=== PATIENT | female | born 1990 | race Caucasian/White ===

== ENCOUNTER → 2020-01-24 08:41 | Outpatient (CLI) | payer BC, SELFPAY ==
[2020-01-24 11:10] LABS: Progesterone Level 14.83 ng/mL (See Comment)
[2020-01-24 11:14] LABS: Prolactin 43.6 ng/mL
== END ==
PROVIDERS: Visit Provider Obstetrics & Gynecology
DX: N97.0 Female infertility associated with anovulation (principal)
CPT/HCPCS: 36415; 84144; 84146; 84443

== ENCOUNTER → 2020-02-01 18:03 | Outpatient (CLI) | payer BC, SELFPAY ==
--- NOTE | 2020-02-01 18:15 | MRI_ITS ---
STUDY: MRI BRAIN WITH AND WITHOUT CONTRAST REASON FOR EXAM: Female, 29 years old. Infertility,elevated prolactin TECHNIQUE: Standardized multiplanar fat and water weighted pulse sequences were obtained. 11ml Dotarem via IV was administered for the contrast portion of the examination. COMPARISON: None. FINDINGS: Normal size of the ventricles and extra-axial spaces for the patient''s age. Normal white matter tracts of the supratentorial brain. Normal bilateral basal ganglia. Normal thalami. There is no extra-axial fluid accumulation. Normal flow voids within the major intracranial circulation suggesting patency by spin echo criteria. Normal venous enhancement. There is no enhancing intra-axial or extra-axial abnormality. The pituitary appears upper normal size for age measuring possibly 9.3 x 7.7 x 1.5 cm enhancing slightly heterogeneously however there is no focal nonenhancing nodule., There is mild thickening of the proximal fibula. Normal optic chiasm and hypothalamus. Normal tectal plate and pineal gland. Normal midbrain, froilan and medulla. Normal cerebellum. Normal basal cisterns. Normal bilateral temporal bones. Normal bilateral internal auditory canals. No demonstrated orbital abnormality, within the constraints of a routine brain study. There is minor mucosal thickening of the maxillary and sphenoid sinuses. Normal calvarium and skull base. Normal visualized soft tissue structures. Normal visualized upper cervical spine. IMPRESSION: Slightly heterogeneously enhancing pituitary without well-defined nodule. Possibility of a prolactin producing microadenoma not excluded Electronically Signed: Norbert Guzmán MD at 20:03 EDT , Service support , STUDY: MRI BRAIN WITH AND WITHOUT CONTRAST (ATTENTION PITUITARY GLAND) REASON FOR EXAM: Female, 29 years old. Infertility,elevated prolactin TECHNIQUE: Standardized multiplanar fat and water weighted pulse sequences were obtained. 11ml Dotarem via IV was administered for the contrast portion of the examination. COMPARISON: None. FINDINGS: The pituitary is upper normal size for age measuring 9.3 x 7.7 x 1.5 cm but demonstrates heterogeneous enhancement without well-defined focal nonenhancing nodule. There is mild thickening of the proximal pituitary stalk. Normal suprasellar cistern. Normal optic chiasm and hypothalamus. Normal size of the ventricles and extra-axial spaces for the patient''s age. Normal white matter tracts of the supratentorial brain. Normal bilateral basal ganglia. Normal thalami. Normal flow voids within the major intracranial circulation suggesting patency by spin echo criteria. Normal venous enhancement. There is no enhancing intra-axial or extra-axial abnormality. There is no extra-axial fluid accumulation. Normal tectal plate and pineal gland. Normal midbrain, froilan and medulla. Normal cerebellum. Normal basal cisterns. Normal bilateral temporal bones. Normal bilateral internal auditory canals. No demonstrated orbital abnormality, within the constraints of a routine brain study. Normal visualized paranasal sinuses. Normal calvarium and skull base. Normal visualized upper cervical spine. Normal visualized soft tissue structures. MRI/Brain W/WO Contrast IMPRESSION: No well-defined nonenhancing pituitary adenoma however microadenoma cannot be excluded. Clinical correlation recommended Electronically Signed: Norbert Guzmán MD at 20:05 EDT , Service support ,
== END ==
PROVIDERS: Referring Provider Obstetrics & Gynecology; Visit Provider Obstetrics & Gynecology
DX: N97.0 Female infertility associated with anovulation (principal); E22.1 Hyperprolactinemia
CPT/HCPCS: 70553; A9575

== ENCOUNTER → 2020-06-09 09:38 | Outpatient (CLI) | payer BC, SELFPAY ==
[2020-06-09 11:08] LABS: Progesterone Level 18.85 ng/mL (See Comment)
[2020-06-09 11:12] LABS: Prolactin 0.6 ng/mL; Thyroid Stim Hormone (TSH) 1.12 uIU/mL (0.358-3.74)
== END ==
PROVIDERS: Visit Provider Obstetrics & Gynecology
DX: E22.1 Hyperprolactinemia (principal); N97.0 Female infertility associated with anovulation
CPT/HCPCS: 36415; 84144; 84146; 84443

== ENCOUNTER → 2020-06-21 12:33 | Outpatient (CLI) | payer BC, SELFPAY ==
--- NOTE | 2020-06-21 13:00 | RAD_ITS ---
STUDY: HYSTEROSALPINGOGRAM. REASON FOR EXAM: Female, 29 years old. INFERTILLITY FLUOROSCOPY TIME (if supplied): ( 7 seconds ) minutes/seconds. 3 images were obtained. TECHNIQUE: A hysterosalpingogram was performed by the executive communications manager. Imaging was obtained. COMPARISON: None. FINDINGS: The uterus is unremarkable. Both fallopian tubes are patent with spill. RAD/Salpingogram IMPRESSION: Normal hysterosalpingogram. Electronically Signed: Luis Coles, at 13:45 EST , Service support ,
== END ==
PROVIDERS: Referring Provider Obstetrics & Gynecology; Visit Provider Obstetrics & Gynecology
DX: N97.9 Female infertility, unspecified (principal)
CPT/HCPCS: 58340; 74740; Q9967

== ENCOUNTER → 2020-08-03 09:15 | Outpatient (CLI) | payer BC, SELFPAY ==
[2020-08-03 12:15] LABS: Progesterone Level 11.25 ng/mL (See Comment)
== END ==
DX: N97.9 Female infertility, unspecified (principal)
CPT/HCPCS: 36415; 84144

== ENCOUNTER → 2021-03-08 15:01 | Outpatient (CLI) | payer BC, SELFPAY ==
[2021-03-13 10:31] LABS: HPV Reflexed? NOT INDICATED
== END ==
PROVIDERS: Visit Provider Obstetrics & Gynecology
DX: Z12.4 Encounter for screening for malignant neoplasm of cervix (principal)
CPT/HCPCS: 88175; G0145

== ENCOUNTER → 2022-03-07 | Outpatient (CLI) | payer BC, SELFPAY ==
[2022-03-07 13:50] LABS: Amphetamine Urine VISTA NEGATIVE (<1000 ng/mL); Barbiturate Urine VISTA NEGATIVE (< 200 ng/mL); Benzodiazepine Urine VISTA NEGATIVE (< 200 ng/mL); Cocaine Urine VISTA NEGATIVE (< 300 ng/mL); Ecstacy Urine VISTA NEGATIVE (< 500 ng/mL); Methadone Urine VISTA NEGATIVE (< 300 ng/mL); PCP Urine VISTA NEGATIVE (< 25 ng/mL); THC Urine VISTA NEGATIVE (< 50 ng/mL); Vista UDS pH Range 6
[2022-03-11 22:06] LABS: Chlamydia By Nucleic Acid AMP Negative (Negative)
[2022-03-12 11:13] LABS: Gonococcus By Nucleic Acid AMP Negative (Negative)
== END | disposition home or self-care (01) ==
LOC: LABSPEC 13:15
PROVIDERS: Referring Provider Obstetrics & Gynecology; Visit Provider Obstetrics & Gynecology
DX: O09.91 Supervision of high risk pregnancy, unspecified, first trimester (principal)
CPT/HCPCS: 80307; 87086; 87088; 87491; 87591

== ENCOUNTER → 2022-05-03 | Outpatient (CLI) | payer BC, SELFPAY ==
[2022-05-03 09:31] LABS: Absolute Lymphocyte Count 1.66 X10^3/uL (0.83-4.51); Absolute Neutrophil Count 8.5 X10^3/uL (2.0-7.7); Basophil# 0.03 X10^3/uL; Basophil% 0.3 % (0-1); Eosinophil# 0.06 X10^3/uL; Eosinophils% 0.6 % (0-5); Hematocrit 38.1 % (37-47); Hemoglobin 13.3 g/dL (12.0-15.0); Lymphocyte # 1.66 X10^3/ul (0.83-4.51); Lymphocyte % 15.4 % (19-41); Mean Corp Hgb Conc 34.9 g/dL (32-36); Mean Corpuscular Hgb 30.3 pg (27.0-32.0); Mean Corpuscular Volume 86.8 fL (81-99); Mean Platelet Vol. 9.7 fl (6.2-12.0); Monocyte# 0.46 X10^3/uL; Monocyte% 4.3 % (0-10); NRBC Flagged by Analyzer 0 % (0-5); Neutrophil # 8.45 X10^3/uL (2.7-7.7); Neutrophil % 78.6 % (47-70); Platelet Count 186 K/mm3 (150-450); RBC Distribution Width CV 13.6 % (11.6-14.6); RBC Distribution Width SD 42.7 fl (35.1-43.9); Red Blood Count 4.39 M/mm3 (4.2-5.4); White Blood Count 10.8 K/mm3 (4.4-11.0)
[2022-05-03 10:57] LABS: HIV - WCH Non-Reactive (Nonreactive); Hepatitis B Surface Antigen Non-Reactive (Nonreactive); Hepatitis C Antibody Non-Reactive (Nonreactive); Rubella IgG Reactive (Nonreactive); Syphilis Antibodies Non-reactive
== END | disposition home or self-care (01) ==
LOC: PAVLAB 09:20
PROVIDERS: Referring Provider Obstetrics & Gynecology; Visit Provider Obstetrics & Gynecology
DX: O09.91 Supervision of high risk pregnancy, unspecified, first trimester (principal); Z3A.00 Weeks of gestation of pregnancy not specified
CPT/HCPCS: 36415; 85025; 86703; 86762; 86780; 86803; 86850; 86900; 86901; 87340

== ENCOUNTER → 2022-06-28 | Outpatient (CLI) | payer BC, SELFPAY ==
[2022-06-28 08:37] LABS: Absolute Lymphocyte Count 1.41 X10^3/uL (0.83-4.51); Absolute Neutrophil Count 7.8 X10^3/uL (2.0-7.7); Basophil# 0.04 X10^3/uL; Basophil% 0.4 % (0-1); Eosinophil# 0.04 X10^3/uL; Eosinophils% 0.4 % (0-5); Hematocrit 35.1 % (37-47); Hemoglobin 11.8 g/dL (12.0-15.0); Lymphocyte # 1.41 X10^3/ul (0.83-4.51); Lymphocyte % 14.2 % (19-41); Mean Corp Hgb Conc 33.6 g/dL (32-36); Mean Corpuscular Hgb 31.2 pg (27.0-32.0); Mean Corpuscular Volume 92.9 fL (81-99); Mean Platelet Vol. 9.5 fl (6.2-12.0); Monocyte# 0.47 X10^3/uL; Monocyte% 4.7 % (0-10); NRBC Flagged by Analyzer 0 % (0-5); Neutrophil # 7.79 X10^3/uL (2.7-7.7); Neutrophil % 78.4 % (47-70); Platelet Count 179 K/mm3 (150-450); RBC Distribution Width CV 14.1 % (11.6-14.6); RBC Distribution Width SD 48.1 fl (35.1-43.9); Red Blood Count 3.78 M/mm3 (4.2-5.4); White Blood Count 9.9 K/mm3 (4.4-11.0)
[2022-06-28 08:57] LABS: Glucose Challenge Gest 1H 50g 84 mg/dL (70-140)
[2022-06-28 09:30] LABS: HIV - WCH Non-Reactive (Nonreactive); Syphilis Antibodies Non-reactive
== END | disposition home or self-care (01) ==
LOC: PAVLAB 08:24
PROVIDERS: Referring Provider Obstetrics & Gynecology; Visit Provider Obstetrics & Gynecology
DX: Z34.90 Encounter for supervision of normal pregnancy, unspecified, unspecified trimester (principal); Z3A.22 22 weeks gestation of pregnancy
CPT/HCPCS: 36415; 82950; 85025; 86703; 86780

== ENCOUNTER → 2022-08-09 | Outpatient (CLI) | payer BC, SELFPAY ==
[2022-08-09 10:17] LABS: ALB/GLOB Ratio 0.7 RATIO (0.9-2.4); AST(SGOT) 20 U/L (15-37); Alanine Aminotransfer ALT/SGPT 36 U/L (13-56); Albumin, Serum 2.6 g/dL (3.2-5.0); Alkaline Phosphatase 92 U/L (45-117); Anion Gap 7 (5-15); BUN 8 mg/dL (7-18); BUN/Creat Ratio 12.8 RATIO (10-20); Calcium,Total 8.6 mg/dL (8.5-10.1); Chloride 110 mmol/L (98-107); Creatinine, Serum 0.63 mg/dL (0.55-1.02); EST Glomerular Filtration Rate 119 mL/min (>60); Est Glom Filt Rate - Afr Amer 144 mL/min (>60); Globulin 3.8 g/dL (2.2-4.2); Glucose 94 mg/dL (74-106); Potassium 3.5 mmol/L (3.5-5.1); Protein, Total 6.4 g/dL (6.4-8.2); Sodium Level 140 mmol/L (136-145)
== END | disposition home or self-care (01) ==
LOC: PAVLAB 09:10
PROVIDERS: Referring Provider Obstetrics & Gynecology; Visit Provider Obstetrics & Gynecology
DX: R10.11 Right upper quadrant pain (principal)
CPT/HCPCS: 36415; 80053

== ENCOUNTER → 2022-09-06 | Outpatient (CLI) | payer BC, SELFPAY | END | disposition home or self-care (01) | LOC: LABSPEC 16:38 | PROVIDERS: Referring Provider Obstetrics & Gynecology; Visit Provider Obstetrics & Gynecology | DX: O09.91 Supervision of high risk pregnancy, unspecified, first trimester (principal); Z3A.00 Weeks of gestation of pregnancy not specified | CPT/HCPCS: 87077; 87081 ==

== ENCOUNTER → 2022-09-13 | Outpatient (CLI) | payer BC, SELFPAY | END | disposition home or self-care (01) | LOC: LABSPEC 14:03 | PROVIDERS: Referring Provider Obstetrics & Gynecology; Visit Provider Obstetrics & Gynecology | DX: O09.91 Supervision of high risk pregnancy, unspecified, first trimester (principal); Z3A.00 Weeks of gestation of pregnancy not specified | CPT/HCPCS: 87081 ==

== ENCOUNTER 2022-09-26 18:55 | Outpatient (CLI) | payer BC, SELFPAY ==
[2022-09-26 19:55] VITALS: BP 123/84; PULSE 110; TEMP 36.9; O2SAT 98; BMI 27.9
--- NOTE | 2022-09-26 20:54 | HP.PCM.OB_ITS ---
HPI - General General Date of Admission: 09/26/22 HPI Narrative MARYCARMEN HER, is a 32 @ 39 weeks who presents initially for IOL, however due to nursing staff deficit she was asked to be bumped back to tomorrow night. An NST was ordered before sending her home Maternal Data Information SARAH Calculator Estimated Delivery Date Method Current WG Current Estimate 10/03/22 Manual 39w 0d IVF pregnan cy Other Estimates 09/29/22 Ultrasound #1 39w 4d 10/06/22 Conception 38w 4d PFSH PFSH Medical History Low-lying placenta in second trimester Home Medications docosahexaenoic acid 200 mg capsule ( DHA) 200 mg PO DAILY 03/07/22 [History Last Taken Unknown] prochlorperazine maleate 10 mg tablet (Compazine) 10 mg PO Q8H PRN nausea and vomiting #60 tabs 05/03/22 [Rx Last Taken Unknown] hydroxyzine pamoate 50 mg capsule (Vistaril) 50 mg PO QHS sleep 09/26/22 [History Last Taken Unknown] Allergy/AdvReac Type Severity Reaction Status Date / Time No Known Allergies Allergy Verified 09/20/22 08:42 Family History Grandfather Diabetes Grandmother Alzheimer disease Surgical History S/P left knee surgery S/P wisdom tooth extraction Social History Smoking Status: Never smoker alcohol intake: current details: not while substance use type: does not use caffeine: Yes frequency: 5-6 times per week additional social history: - Pedro Luis History 1 Elective abortions Hx Para Spontaneous abortions Hx # Term Pregnancies Ectopic pregnancies Hx # Pregnancies Multiple births # of living children Visit Details Expected Delivery Route/Plan Labor Preferences- CB/BF classes: [] labor support person: [] labor intervention preferences: [] pain management options preferred: [] cut cord/dad catch: [] : [] PP control planned: [] discussed possible routes of delivery and associated risks: [] special requests: [] Plans Covid status: [] Flu vaccine: obtaining 04/03 Tdap vaccine: [] Rhogam: [] LARC form signed: [] Problem list reviewed and updated with the most current plan of care details and appropriate orders placed. Relevant counseling for the gestational age provided. Continue routine care and follow up unless otherwise noted in visit notes/problem list details OB Flowsheet Initial Weight: Not Recorded Date -?-?-?-?-?-?-?-?-?-?-?-?- EGA Weight BP Urine Prot -?-?-?-?-?-?-?-?-?-?-?-?- Glucose FHR FuHt Pres Dilation -?-?-?-?-?-?-?-?-?-?-?-?- Effaced St Visit Note 03/07/22 -?-?-?-?-?-?-?-?-?-?-?-?- 10w 0d 126 lb 108/64 -?-?-?-?-?-?-?-?-?-?-?-?- 178 -?-?-?-?-?-?-?-?-?-?-?-?- JV- IVF transfer with Dr. Lazar. CRL consistent with transfer date. waiting on records 03/18/22 -?-?-?-?-?-?-?-?-?-?-?-?- 11w 4d 127 lb 4 oz 101/64 Nega tive -?-?-?-?-?-?-?-?-?-?-?-?- Negative 165 -?-?-?-?-?-?-?-?-?-?-?-?- SM- no vb crampi ng 04/03/22 -?-?-?-?-?-?-?-?-?-?-?-?- 13w 6d 132 lb 120/64 -?-?-?-?-?-?-?-?-?-?-?-?- 153 -?-?-?-?-?-?-?-?-?-?-?-?- LC- no vb/crampi ng. discussed afp. will obtain NOB labs, hasnt done so yet.has anatomy scheduled with [facility]. 05/03/22 -?-?-?-?-?-?-?-?-?-?-?-?- 18w 1d 137 lb 6 oz 120/71 Nega tive -?-?-?-?-?-?-?-?-?-?-?-?- Negative 145 -?-?-?-?-?-?-?-?-?-?-?-?- JV- no lof, vagi nal bleeding, or cramping. still nauseated, did not vomit today. using compazine. vistaril sent to pharmacy. needs new ob labs still and going today. 05/31/22 -?-?-?-?-?-?-?-?-?-?-?-?- 22w 1d 144 lb 112/75 Negative -?-?-?-?-?-?-?-?-?-?-?-?- Negative 140 -?-?-?-?-?-?-?-?-?-?-?-?- SM- no vb lof go od fm no reuglar ctx doing well 06/28/22 -?-?-?-?-?-?-?-?-?-?-?-?- 26w 1d 150 lb 8 oz 98/65 Nega tive -?-?-?-?-?-?-?-?-?-?-?-?- Negative 140 26 -?-?-?-?-?-?-?-?-?-?-?-?- SM- no vb lof go od fm no regular ctx 07/12/22 -?-?-?-?-?-?-?-?-?-?-?-?- 28w 1d 152 lb 8 oz Negative -?-?-?-?-?-?-?-?-?-?-?-?- Negative 156 27 -?-?-?-?-?-?-?-?-?-?-?-?- JV- no lof, vagi nal or dec fm. got tdap 07/26/22 -?-?-?-?-?-?-?-?-?-?-?-?- 30w 1d 156 lb 116/75 Negative -?-?-?-?-?-?-?-?-?-?-?-?- Negative 140 29 -?-?-?-?-?-?-?-?-?-?-?-?- JV- indigestion but no other complaints. taking pepcid. no lof, vaginal bleeding, or dec fm. 08/09/22 -?-?-?-?-?-?-?-?-?-?-?-?- 32w 1d 159 lb 2 oz 111/71 Nega tive -?-?-?-?-?-?-?-?-?-?-?-?- Negative 145 31 -?-?-?-?-?-?-?-?-?-?-?-?- JV- c/o mid back pain that is sharp at times and chiropractor not helping. she will keep a journal of her diet and let us if it is worse with fatty foods. will get LFTs. mild manipulation attempted today 08/23/22 -?-?-?-?-?-?-?-?-?-?-?-?- 34w 1d 162 lb 8 oz 125/74 -?-?-?-?-?-?-?-?-?-?-?-?- 132 34 -?-?-?-?-?-?-?-?-?-?-?-?- JV- no lof, vagi nal bleeding, or dec fm. referral to Dr. cole made for upper back pain. growth scan normal. plan del 39 weeks for IVF 09/06/22 -?-?-?-?-?-?-?-?-?-?-?-?- 36w 1d 161 lb 6 oz 113/72 Nega tive -?-?-?-?-?-?-?-?-?-?-?-?- Negative 140 0 -?-?-?-?-?-?-?-?-?-?-?-?- 0 -3 LC- no lof /vb. cramping today. enc PO hydration. gbs obtained today 09/13/22 -?-?-?-?-?-?-?-?-?-?-?-?- 37w 1d 163 lb 6 oz 129/82 Nega tive -?-?-?--?-?-?-?-?-?-?-?-?- Negative 147 36 0 -?-?-?-?-?-?-?-?-?-?-?-?- -3 JV- IOL set for 39 weeks (09/26/22 at 7 pm) has group c strep - see problem list. gbs recollected today also. no complaints. labor precautions discussed. needs to sign consent for IOL next visit 09/20/22 -?-?-?-?-?-?-?-?-?-?-?-?- 38w 1d 163 lb 6 oz 136/87 Nega tive -?-?-?-?-?-?-?-?-?-?-?-?- Negative 160 38 0 -?-?-?-?-?-?-?-?-?-?-?-?- -3 JV- no l of, vaginal bleeding, or dec fm. no complaints today. IOL papers signed. NST FHR Rate Baby A Baseline: 140 Variability:: Moderate Accelerations:: 15 x 15 Decelerations:: None NST Reactive:: Yes FHR Category:: Category I ROS Constitutional Constitutional: Reports systems reviewed and no addt'l complaints, except as documented Gastrointestinal Gastrointestinal: Denies bloating, constipation, cramping, diarrhea, nausea or vomiting Genitourinary Genitourinary: Reports other Details: Denies vaginal odor, vaginal bleeding, or vaginal discharge ; Denies difficulty urinating or flank pain Vital Signs Vital Signs Vital Signs: 09/26/22 19:55 09/26/22 19:55 09/26/22 19:55 Temperature Temperature Source Temporal Pulse Rate 110 H Blood Pressure 123/84 H BP Systolic 123 BP Diastolic 84 Pulse Ox 09/26/22 19:55 09/26/22 19:55 Temperature 98.4 F Temperature Source Pulse Rate Blood Pressure BP Systolic BP Diastolic Pulse Ox 98 Weight Weight: 168 lb Body Mass Index (BMI) 27.9 Physical Exam HEENT normocephalic Resp normal respiratory effort and normal air movement no CVA tenderness Extremity normal to inspection General Extremity: edema bilateral (trace ) Labs Labs Labs: Blood Type A POSITIVE Antibody Screen NEGATIVE Hct 35.1 % (37-47) L Hgb 11.8 g/dL (12.0-15.0) L Pap Smear Negative Syphilis Total Ab Non-reactive Rubella IgG Antibody Reactive (Nonreactive) Hep Bs Antigen Non-Reactive (Nonreactive) Chlamydia DNA (PABLO) Negative (Negative) Neisseria gonorrhoeae DNA (PABLO) Negative (Negative) HIV 1&2 Antibody Non-Reactive (Nonreactive) Glucose 1 Hr 50 gm 84 mg/dL (70-140) Assessment & Plan (1) conceived through in vitro fertilization: COMMENT: nl echo. weekly nsts at 36 deliver by 39-40. (2) : QUALIFIERS: Weeks of gestation: 38 weeks Qualified Code(s): Z3A.38 - 38 weeks gestation of COMMENT: GBS neg, nipt low risk. carrier done nonsignificant. anatomy reviewed (3) Supervision of high risk in first trimester: COMMENT: PRR SARAH 10/03/22 surprise Spouse: Pedro Luis PLAN: Plan dc to home tonight and return tomorrow night for IOL Charges/Coding Multi Select Codes Urinary/Genital Urinary/Genital CPT Codes: 12397-04 non-stress test Interp
== END 2022-09-26 20:40 | disposition home or self-care (01) ==
LOC: WPOUT 09-27 11:20 → WP 09-27 11:21
PROVIDERS: Visit Provider Obstetrics & Gynecology
DX: O09.813 Supervision of pregnancy resulting from assisted reproductive technology, third trimester (principal); Z3A.38 38 weeks gestation of pregnancy
CPT/HCPCS: 59025; 59050

== ENCOUNTER 2022-09-27 19:23 | Inpatient (IN) | payer BC, SELFPAY ==
[2022-09-27 19:21] VITALS: BMI 27.8
[2022-09-27 19:39] VITALS: BP 129/82; PULSE 82; O2SAT 98
[2022-09-27 19:40] VITALS: TEMP 37.4
[2022-09-27] MEDS: Lactated Ringers 1,000 ML 50 ML IV (19:55)
[2022-09-27 20:16] LABS: Absolute Lymphocyte Count 2.42 X10^3/uL (0.83-4.51); Absolute Neutrophil Count 8.2 X10^3/uL (2.0-7.7); Basophil# 0.07 X10^3/uL; Basophil% 0.6 % (0-1); Eosinophil# 0.05 X10^3/uL; Eosinophils% 0.4 % (0-5); Hematocrit 35.6 % (37-47); Hemoglobin 12.1 g/dL (12.0-15.0); Lymphocyte # 2.42 X10^3/ul (0.83-4.51); Lymphocyte % 19.9 % (19-41); Mean Corpuscular Hgb 29.9 pg (27.0-32.0); Mean Corpuscular Volume 87.9 fL (81-99); Mean Platelet Vol. 10.8 fl (6.2-12.0); Monocyte# 1.13 X10^3/uL; Monocyte% 9.3 % (0-10); NRBC Flagged by Analyzer 0 % (0-5); Neutrophil # 8.24 X10^3/uL (2.7-7.7); Neutrophil % 67.9 % (47-70); Platelet Count 211 K/mm3 (150-450); RBC Distribution Width CV 13.5 % (11.6-14.6); RBC Distribution Width SD 43.3 fl (35.1-43.9); Red Blood Count 4.05 M/mm3 (4.2-5.4); White Blood Count 12.1 K/mm3 (4.4-11.0)
[2022-09-27 20:50] LABS: Syphilis Antibodies Non-reactive
--- NOTE | 2022-09-27 21:05 | HP.PCM.OB_ITS ---
HPI - General General Date of Admission: 09/27/22 Date of Service: 09/27/22 HPI Narrative MARYCARMEN HER, is a 32 F who presents at 39 weeks for elective IOL for IVF . Maternal Data Information SARAH Calculator Estimated Delivery Date Method Current WG Current Estimate 10/03/22 Manual 39w 1d IVF pregnan cy Other Estimates 09/29/22 Ultrasound #1 39w 5d 10/06/22 Conception 38w 5d Final SARAH: 10/03/22 Final SARAH Source: US >20 weeks Gestational age: 39 weeks 1 day PFSH PFSH Medical History (Updated 09/27/22 @ 19:48 by Mirta Coley) Infertility Low-lying placenta in second trimester Home Medications docosahexaenoic acid 200 mg capsule ( DHA) 200 mg PO DAILY 03/07/22 [History Last Taken 09/27/22 08:00 1 tab] prochlorperazine maleate 10 mg tablet (Compazine) 10 mg PO Q8H PRN nausea and vomiting #60 tabs 05/03/22 [Rx Last Taken Unknown] hydroxyzine pamoate 50 mg capsule (Vistaril) 50 mg PO QHS sleep 09/26/22 [History Last Taken Unknown] Allergy/AdvReac Type Severity Reaction Status Date / Time No Known Allergies Allergy Verified 09/20/22 08:42 Family History Grandfather Diabetes Grandmother Alzheimer disease Surgical History (Updated 09/27/22 @ 19:49 by Mirta Coley) History of surgery S/P left knee surgery S/P wisdom tooth extraction Social History Smoking Status: Never smoker alcohol intake: current details: not while substance use type: does not use caffeine: Yes frequency: 5-6 times per week additional social history: - Pedro Luis History 1 Elective abortions Hx Para 0 Spontaneous abortions Hx # Term Pregnancies Ectopic pregnancies Hx # Pregnancies Multiple births # of living children Visit Details Expected Delivery Route/Plan Labor Preferences- CB/BF classes: [] labor support person: [] labor intervention preferences: [] pain management options preferred: [] cut cord/dad catch: [] : [] PP control planned: [] discussed possible routes of delivery and associated risks: [] special requests: [] Plans Covid status: [] Flu vaccine: obtaining 04/03 Tdap vaccine: [] Rhogam: [] LARC form signed: [] Problem list reviewed and updated with the most current plan of care details and appropriate orders placed. Relevant counseling for the gestational age provided. Continue routine care and follow up unless otherwise noted in visit notes/problem list details OB Flowsheet Initial Weight: Not Recorded Date -?-?-?-?-?-?-?-?-?-?-?-?- EGA Weight BP Urine Prot -?-?-?-?-?-?-?-?-?-?-?-?- Glucose FHR FuHt Pres Dilation -?-?-?-?-?-?-?-?-?-?-?-?- Effaced St Visit Note 03/07/22 -?-?-?-?--?-?-?-?-?-?-?-?- 10w 0d 126 lb 108/64 -?-?-?-?-?-?-?-?-?-?-?-?- 178 -?-?-?-?-?-?-?-?-?-?-?-?- JV- IVF transfer with Dr. Lazar. CRL consistent with transfer date. waiting on records 03/18/22 -?-?-?-?-?-?-?-?-?-?-?-?- 11w 4d 127 lb 4 oz 101/64 Nega tive -?-?-?-?-?-?-?-?-?-?-?-?- Negative 165 -?-?-?-?-?-?-?-?-?-?-?-?- SM- no vb crampi ng 04/03/22 -?-?-?-?-?-?-?-?-?-?-?-?- 13w 6d 132 lb 120/64 -?-?-?-?-?-?-?-?-?-?-?-?- 153 -?-?-?-?-?-?-?-?-?-?-?-?- LC- no vb/crampi ng. discussed afp. will obtain NOB labs, hasnt done so yet.has anatomy scheduled with [facility]. 05/03/22 -?-?-?-?-?-?-?--?-?-?-?-?- 18w 1d 137 lb 6 oz 120/71 Nega tive -?-?-?-?-?-?-?-?-?-?-?-?- Negative 145 -?-?-?-?-?-?-?-?-?-?-?-?- JV- no lof, vagi nal bleeding, or cramping. still nauseated, did not vomit today. using compazine. vistaril sent to pharmacy. needs new ob labs still and going today. 05/31/22 -?-?-?-?-?-?-?-?-?-?-?-?- 22w 1d 144 lb 112/75 Negative -?-?-?-?-?-?-?-?-?-?-?-?- Negative 140 -?-?-?-?-?-?-?-?-?-?-?-?- SM- no vb lof go od fm no reuglar ctx doing well 06/28/22 -?-?-?-?-?-?-?-?-?-?-?-?- 26w 1d 150 lb 8 oz 98/65 Nega tive -?-?-?-?-?-?-?-?-?-?-?-?- Negative 140 26 -?-?-?-?-?-?-?-?-?-?-?-?- SM- no vb lof go od fm no regular ctx 07/12/22 -?-?-?-?-?-?-?-?-?-?-?-?- 28w 1d 152 lb 8 oz Negative -?-?-?-?-?-?-?-?-?-?-?-?- Negative 156 27 -?-?-?-?-?-?-?-?-?-?-?-?- JV- no lof, vagi nal or dec fm. got tdap 07/26/22 -?-?-?-?-?-?-?-?-?-?-?-?- 30w 1d 156 lb 116/75 Negative -?-?-?-?--?-?-?-?-?-?-?-?- Negative 140 29 -?-?-?-?-?-?-?-?-?-?-?-?- JV- indigestion but no other complaints. taking pepcid. no lof, vaginal bleeding, or dec fm. 08/09/22 -?-?-?-?-?-?-?-?-?-?-?-?- 32w 1d 159 lb 2 oz 111/71 Nega tive -?-?-?-?-?-?-?-?-?-?-?-?- Negative 145 31 -?-?-?-?-?-?-?-?-?-?-?-?- JV- c/o mid back pain that is sharp at times and chiropractor not helping. she will keep a journal of her diet and let us if it is worse with fatty foods. will get LFTs. mild manipulation attempted today 08/23/22 -?-?-?-?-?-?-?-?-?-?-?-?- 34w 1d 162 lb 8 oz 125/74 -?-?-?-?-?-?-?-?-?-?-?-?- 132 34 -?-?-?-?-?-?-?-?-?-?-?-?- JV- no lof, vagi nal bleeding, or dec fm. referral to Dr. cole made for upper back pain. growth scan normal. plan del 39 weeks for IVF 09/06/22 -?-?-?-?-?-?-?-?-?-?-?-?- 36w 1d 161 lb 6 oz 113/72 Nega tive -?-?-?-?-?-?-?-?-?-?-?-?- Negative 140 0 -?-?-?-?-?-?-?-?-?-?-?-?- 0 -3 LC- no lof /vb. cramping today. enc PO hydration. gbs obtained today 09/13/22 -?-?-?-?-?-?-?-?-?-?-?-?- 37w 1d 163 lb 6 oz 129/82 Nega tive -?-?-?-?-?-?-?-?-?-?-?-?- Negative 147 36 0 -?-?-?-?-?-?-?-?-?-?-?-?- -3 JV- IOL set for 39 weeks (09/26/22 at 7 pm) has group c strep - see problem list. gbs recollected today also. no complaints. labor precautions discussed. n eeds to sign consent for IOL next visit 09/20/22 -?-?-?-?-?-?-?-?-?-?-?-?- 38w 1d 163 lb 6 oz 136/87 Nega tive -?-?-?-?-?-?-?-?-?-?-?-?- Negative 160 38 0 -?-?-?-?-?-?-?-?-?-?-?-?- -3 JV- no l of, vaginal bleeding, or dec fm. no complaints today. IOL papers signed. 09/27/22 -?-?-?-?-?-?-?-?-?-?-?-?- 39w 1d 167 lb 8.821 oz 129/82 -?-?-?-?-?-?-?-?-?-?-?-?- -?-?-?-?-?-?-?-?-?-?-?-?- NST FHR Rate Baby A Baseline: 130 Variability:: Moderate Accelerations:: 15 x 15 Decelerations:: None NST Reactive:: Yes FHR Category:: Category I Uterine Activity:: none ROS Constitutional Constitutional: Denies change in weight, fatigue, fever(s), headache(s), poor appetite or weakness Eyes Eyes: Denies blurry vision, change in vision, floaters, seeing flashes or spots in vision ENT HEENT: Denies dizziness, headache(s), loss taste/smell or sore throat Cardiovascular Cardiovascular: Denies chest pain, dizziness, dyspnea, irregular heart rhythm, lightheadedness, palpitations or rapid heart rate Respiratory/Chest Respiratory/Chest: Denies change in mental status, chest tightness, cough, dyspnea or breast pain Gastrointestinal Gastrointestinal: Denies anorexia, chewing difficulty, constipation, diarrhea or weight changes Genitourinary Genitourinary: Denies difficulty urinating, dysuria, flank pain, genital pain, urinary frequency or urinary urgency Musculoskeletal Musculoskeletal: Denies back pain, difficulty walking, extremity pain, joint pain, muscle cramps or muscle weakness Integumentary Integumentary: Denies lesions or unusual bruising Neurologic Neurologic: Denies abnormal movements, abnormal speech, dizziness, numbness, seizure-like activity, syncope or weakness Psychiatric Psychiatric: Denies behavioral changes, change in appetite, confusion, depression, homicidal ideation, suicidal ideation or suicidal thoughts Endocrine Endocrinology: Denies excessive sweating, polydipsia or polyuria Hematologic/Lymphatic Hematologic/Lymphatic: Denies anemia Allergic/Immunologic Allergic/Immunologic: Denies itchy eyes, lip swelling, throat swelling, tongue swelling or wheezing Vital Signs Vital Signs Vital Signs: 09/27/22 19:39 09/27/22 19:39 09/27/22 19:39 Temperature Pulse Rate 82 Blood Pressure 129/82 H BP Systolic 129 BP Diastolic 82 Pulse Ox 98 09/27/22 19:40 Temperature 99.3 F H Pulse Rate Blood Pressure BP Systolic BP Diastolic Pulse Ox Weight Weight: 167 lb 8.821 oz Body Mass Index (BMI) 27.8 Physical Exam Const alert, oriented x3 and no apparent distress General Appearance: cooperative Orientation / Consciousness: awake HEENT normocephalic Neck full ROM Lymph Lymphatic: no lymphadenopathy noted Chest inspection of chest normal Resp normal respiratory effort and normal air movement Effort and Inspection: able to speak in complete sentences and symmetric chest movement GI soft to palpation and non-tender Inspection: gravid Palpation: soft; Negative for tender Manual OB Exam: estimated gestational size, presentation cephalic (Bedside ultrasound ), dilated 0, effaced 30, station -2 and other exam per RN Uterus Palpation: uterus tender Back/Spine normal to inspection Extremity normal to inspection and full ROM Skin no rashes or lesions noted Psych mental status grossly normal Appearance: grossly normal Speech: normal speech Labs Labs Labs: Blood Type A POSITIVE Antibody Screen NEGATIVE Hct 35.6 % (37-47) L Hgb 12.1 g/dL (12.0-15.0) Pap Smear Negative Syphilis Total Ab Non-reactive Rubella IgG Antibody Reactive (Nonreactive) Hep Bs Antigen Non-Reactive (Nonreactive) Chlamydia DNA (PABLO) Negative (Negative) Neisseria gonorrhoeae DNA (PABLO) Negative (Negative) HIV 1&2 Antibody Non-Reactive (Nonreactive) Glucose 1 Hr 50 gm 84 mg/dL (70-140) Assessment & Plan (1) Supervision of high risk in first trimester: COMMENT: PRR SARAH 10/03/22 surprise Spouse: Pedro Luis (2) : QUALIFIERS: Weeks of gestation: 38 weeks Qualified Code(s): Z3A.38 - 38 weeks gestation of COMMENT: GBS neg, nipt low risk. carrier done nonsignificant. anatomy reviewed PLAN: Patient presents elective IOL, plan active management for , cytotec, pitocin/AROM PRN if needed. Pain management: plans epidural. GBS negative. Management of any complications: IVF I have reviewed the [facility] and made any clinically relevant updates. Plan reviewed with Dr Joyce and agrees with POC (3) conceived through in vitro fertilization: COMMENT: nl echo. weekly nsts at 36 deliver by 39-40. (4) Group C streptococcal infection: COMMENT: vaginal culture returned Group C. discussed with Dr. Gonzalez and no significance known for . rpt gbs culture collected as this could be contaminant. plan for betadine wash at delivery if anything. RPT culture was negative for c and B Charges/Coding Procedures Urinary/Genital [id number]: No Charge
[2022-09-27] MEDS: miSOPROStol 25 MCG TABLET VAGINAL (21:31)
[2022-09-27] MEDS: LACTATED RINGERS 500 ML 999 ML IV (22:41)
[2022-09-27 23:07] VITALS: BP 114/72; PULSE 59; TEMP 36.7; O2SAT 98
[2022-09-28] VITALS (72 sets, daily range): BP systolic 94–192; BP diastolic 51–103; PULSE 52–99; TEMP 36.3–37.9; O2SAT 90–100
[2022-09-28] MEDS: LACTATED RINGERS 500 ML 999 ML IV ×3 (02:35→09:29)
[2022-09-28] MEDS: Lactated Ringers 1,000 ML 200 ML IV ×5 (03:06→18:08)
[2022-09-28] MEDS: 0.9% Normal Saline Single 100 ML IV.SOLN. INTRA-UTER (07:08)
--- NOTE | 2022-09-28 07:12 | PCM.PN.OB ---
Subjective Subjective Patient doing well without complaints. Armando bulb placed without complications. current tracing: FHT: 120 Moderate variability reactive no decelerations category I tracing [place]: mild to moderate Contractions GBS negative reviewed tracing abnormalities since last note: some random decelerations noted, some periods of minimal variability, overall reassuring. A/P: IOL, plan management for with pitocin/AROM/ armando bulb. Pain management: plans epidural. Management of any complications: IVF I have reviewed the [facility] and made any clinically relevant updates. Plan reviewed with Dr Joyce, agrees with POC Objective Data Objective Data Vital Signs: Vital Signs Temp Pulse BP Pulse Ox 99.3 F H 55 L 122/88 H 98 09/28/22 02:53 09/28/22 02:54 09/28/22 02:54 09/27/22 23:07 Weight: 167 lb 8.821 oz Body Mass Index (BMI) 27.8 Intake & Output: Intake and Output for Last 24 Hours 09/26/22 09/27/22 09/28/22 23:59 23:59 23:59 Intake Total 687.5 / 687.5 1180 / 1180 Output Total 200 / 200 Balance 687.5 / 687.5 980 / 980 Lab / Micro Data Attestation: I reviewed the patient's lab results. Result Diagrams: 09/27/22 19:55 Labs: Laboratory Results - last 24 hr 09/27/22 19:55: WBC 12.1 H, RBC 4.05 L, Hgb 12.1, Hct 35.6 L, MCV 87.9, MCH 29.9, MCHC 34.0, RDW Std Deviation 43.3, RDW Coeff of [place]ita 13.5, Plt Count 211, MPV 10.8, Immature Gran % (Auto) 1.900 H, Neut % (Auto) 67.9, Lymph % (Auto) 19.9, [place] % (Auto) 9.3, Eos % (Auto) 0.4, Baso % (Auto) 0.6, Absolute Neuts (auto) 8.2 H, Absolute Lymphs (auto) 2.42, Nucleated RBC % 0 09/27/22 19:55: Blood Type A POSITIVE, Antibody Screen NEGATIVE 09/27/22 19:55: Syphilis Total Ab Non-reactive ROS Constitutional Constitutional: Reports systems reviewed and no addt'l complaints, except as documented Cardiovascular Cardiovascular: Reports systems reviewed and no addt'l complaints, except as documented Respiratory/Chest Respiratory/Chest: Reports systems reviewed and no addt'l complaints, except as documented; Denies cough, dyspnea or shortness of breath at rest Gastrointestinal Gastrointestinal: Reports systems reviewed and no addt'l complaints, except as documented Genitourinary Genitourinary: Reports systems reviewed and no addt'l complaints, except as documented, contractions Details: present and movement Details: present Musculoskeletal Musculoskeletal: Reports systems reviewed and no addt'l complaints, except as documented Integumentary Integumentary: Reports systems reviewed and no addt'l complaints, except as documented Neurologic Neurologic: Reports systems reviewed and no addt'l complaints, except as documented Physical Exam Const General Appearance: cooperative and comfortable Resp normal respiratory effort and no retractions GI soft to palpation and non-tender Palpation: firm Manual OB Exam: estimated gestational size appropriate, presentation cephalic, dilated 1-2, effaced 50 and station -2 Extremity normal to inspection and full ROM Neuro moves all extremities NST FHR Rate Baby A Baseline: 120 Variability:: Moderate Accelerations:: 15 x 15 Decelerations:: None NST Reactive:: Yes FHR Category:: Category I Uterine Activity:: 1.5-3 palpating mild to moderate Assessment & Plan (1) Supervision of high risk in first trimester: COMMENT: PRR SARAH 10/03/22 surprise Spouse: Pedro Luis (2) : QUALIFIERS: Weeks of gestation: 38 weeks Qualified Code(s): Z3A.38 - 38 weeks gestation of COMMENT: GBS neg, nipt low risk. carrier done nonsignificant. anatomy reviewed (3) conceived through in vitro fertilization: COMMENT: nl echo. weekly nsts at 36 deliver by 39-40. (4) Group C streptococcal infection: COMMENT: vaginal culture returned Group C. discussed with Dr. Gonzalez and no significance known for . rpt gbs culture collected as this could be contaminant. plan for betadine wash at delivery if anything. RPT culture was negative for c and B (5) Encounter for induction of labor: PLAN: IOL, plan management for with pitocin/AROM/ armando bulb. Pain management: plans epidural. GBS negative. Management of any complications: IVF I have reviewed the [facility] and made any clinically relevant updates. armando bulb placed Plan reviewed with Dr Joyce, agrees with POC Charges/Coding Procedures Urinary/Genital 52xxx-59xxx: No Charge
[2022-09-28] MEDS: Oxytocin 15 Units/NS 250ml 15 UNITS/250 ML IV.SOLN 2 UNITS IV (08:03)
[2022-09-28] MEDS: Ondansetron 4 MG/2 ML Vial IV ×2 (09:29→18:44)
[2022-09-28] MEDS: fentaNYL-bupivacaine (epidural) 100 ML BAG EPIDURAL ×3 (10:25→19:11)
--- NOTE | 2022-09-28 12:39 | PN.OBGYN_ITS ---
Subjective Subjective patient comfortable with epidural. current tracing: FHT: 125 Moderate variability reactive no decelerations category I tracing [place]: Contractions q 3-4 minutes palpating moderate to strong 8 unit pitocin Left extreme with peanut ball reviewed tracing abnormalities since last note: few variables noted- overall reassuring SVE: moderate bloody show. armando bulb still in. anticipate it to expel in next hour A/P:continue current plan of care continue with position changes Increase pitocin PRN AROM when appropriate Anticipate Objective Data Objective Data Vital Signs: Vital Signs Temp Pulse BP Pulse Ox 97.3 F L 55 L 94/51 L 99 09/28/22 12:07 09/28/22 12:06 09/28/22 12:06 09/28/22 11:09 Weight: 167 lb 8.821 oz Body Mass Index (BMI) 27.8 Intake & Output: Intake and Output for Last 24 Hours 09/26/22 09/27/22 09/28/22 23:59 23:59 23:59 Intake Total 687.5 / 687.5 3051.15 / 3051.15 Output Total 200 / 200 Balance 687.5 / 687.5 2851.15 / 2851.15 Lab / Micro Data Result Diagrams: 09/27/22 19:55 Labs: Laboratory Results - last 24 hr 09/27/22 19:55: WBC 12.1 H, RBC 4.05 L, Hgb 12.1, Hct 35.6 L, MCV 87.9, MCH 29.9, MCHC 34.0, RDW Std Deviation 43.3, RDW Coeff of Sherita 13.5, Plt Count 211, MPV 10.8, Immature Gran % (Auto) 1.900 H, Neut % (Auto) 67.9, Lymph % (Auto) 19.9, [place] % (Auto) 9.3, Eos % (Auto) 0.4, Baso % (Auto) 0.6, Absolute Neuts (auto) 8.2 H, Absolute Lymphs (auto) 2.42, Nucleated RBC % 0 09/27/22 19:55: Blood Type A POSITIVE, Antibody Screen NEGATIVE 09/27/22 19:55: Syphilis Total Ab Non-reactive ROS Constitutional Constitutional: Reports systems reviewed and no addt'l complaints, except as documented Respiratory/Chest Respiratory/Chest: Reports systems reviewed and no addt'l complaints, except as documented Gastrointestinal Gastrointestinal: Reports systems reviewed and no addt'l complaints, except as documented Genitourinary Genitourinary: Reports systems reviewed and no addt'l complaints, except as documented Physical Exam Const alert and oriented x3 Resp normal respiratory effort and no retractions GI soft to palpation and non-tender Inspection: gravid Palpation: other Other Details: gravid Bladder / Kidney Exam: catheter in place urethral Manual OB Exam: dilated 3 and effaced 90 Psych mental status grossly normal NST FHR Rate Baby A Baseline: 125 Variability:: Moderate Accelerations:: 15 x 15 Decelerations:: None NST Reactive:: Yes FHR Category:: Category I Assessment & Plan (1) Encounter for induction of labor: (2) Supervision of high risk in first trimester: COMMENT: PRR SARAH 10/03/22 surprise Spouse: Pedro Luis Charges/Coding Procedures Urinary/Genital 52xxx-59xxx: No Charge
--- NOTE | 2022-09-28 14:35 | PCM.PN.OB ---
Subjective Subjective Patient comfortable with the epidural current tracing: FHT: 120 Moderate variability reactive no decelerations category I tracing [place]: strong Contractions q2-4 minutes AROM at 1312 for clear fluid reviewed tracing abnormalities since last note: After armando bulb expelled at 1310, AROM performed, variables then noted with minimal variability. patient to hands and knees. Pitocin decreased to 5mu. SM Called and reviewed the strip. RN attempted to place internal monitors. Copious amount of clear fluid expelled with internal attempt. RN reports SVE at 7/90/-2. FHT then started to become reactive. External monitors still in use. After 30 minutes reactive strip, orders given to increase pitocin per protocol. A/P: Continue current POC Continue position changes Increase pitocin PRN Anticipate Objective Data Objective Data Vital Signs: Vital Signs Temp Pulse BP Pulse Ox 98.2 F 59 L 105/61 99 09/28/22 13:12 09/28/22 13:46 09/28/22 13:46 09/28/22 11:09 Weight: 167 lb 8.821 oz Body Mass Index (BMI) 27.8 Intake & Output: Intake and Output for Last 24 Hours 09/26/22 09/27/22 09/28/22 23:59 23:59 23:59 Intake Total 687.5 / 687.5 4357.82 / 4357.82 Output Total 1850 / 1850 Balance 687.5 / 687.5 2507.82 / 2507.82 Lab / Micro Data Result Diagrams: 09/27/22 19:55 Labs: Laboratory Results - last 24 hr 09/27/22 19:55: WBC 12.1 H, RBC 4.05 L, Hgb 12.1, Hct 35.6 L, MCV 87.9, MCH 29.9, MCHC 34.0, RDW Std Deviation 43.3, RDW Coeff of Sherita 13.5, Plt Count 211, MPV 10.8, Immature Gran % (Auto) 1.900 H, Neut % (Auto) 67.9, Lymph % (Auto) 19.9, [place] % (Auto) 9.3, Eos % (Auto) 0.4, Baso % (Auto) 0.6, Absolute Neuts (auto) 8.2 H, Absolute Lymphs (auto) 2.42, Nucleated RBC % 0 09/27/22 19:55: Blood Type A POSITIVE, Antibody Screen NEGATIVE 09/27/22 19:55: Syphilis Total Ab Non-reactive NST FHR Rate Baby A Baseline: 120 Variability:: Moderate Accelerations:: 15 x 15 Decelerations:: None NST Reactive:: Yes FHR Category:: Category I Uterine Activity:: 2-4 minutes, palpating strong Charges/Coding Multi Select Codes Urinary/Genital Urinary/Genital CPT Codes: No Charge
[2022-09-28] MEDS: Oxytocin 15 Units/NS 250ml 15 UNITS/250 ML IV.SOLN 83 UNITS IV (21:00)
[2022-09-28] MEDS: Oxytocin 10 UNITS/ML Vial IM (21:00)
--- NOTE | 2022-09-28 21:20 | OP.PCM_ITS ---
Assessment & Plan (1) Encounter for induction of labor: (2) Supervision of high risk in first trimester: COMMENT: PRR SARAH 10/03/22 surprise Spouse: Pedro Luis (3) : QUALIFIERS: Weeks of gestation: 38 weeks Qualified Code(s): Z3A.38 - 38 weeks gestation of COMMENT: GBS neg, nipt low risk. carrier done nonsignificant. anatomy reviewed (4) conceived through in vitro fertilization: COMMENT: nl echo. weekly nsts at 36 deliver by 39-40. (5) Group C streptococcal infection: COMMENT: vaginal culture returned Group C. discussed with Dr. Gonzalez and no significance known for . rpt gbs culture collected as this could be contaminant. plan for betadine wash at delivery if anything. RPT culture was negative for c and B (6) Vaginal delivery: COMMENT: SM/KW 39 IOL IVF boy [place] Maternal Data Information SARAH Calculator Estimated Delivery Date Method Current WG Current Estimate 10/03/22 Manual 39w 2d IVF pregnan cy Other Estimates 09/29/22 Ultrasound #1 39w 6d 10/06/22 Conception 38w 6d Vaginal Delivery Operative Information Date of Procedure: 09/28/22 Pre-Operative Diagnosis: see a/p diagnoses Post-Operative Diagnosis: same Surgery / Procedure Performed: Spontaneous Vaginal Delivery Type of Anesthesia: Epidural Special Medications: none Estimated Blood Loss: 200 Fluids Replaced: crystalloid Findings Description of Procedure: Patient began pushing and delivered the head in the JOAO presentation. The head was delivered atraumatically. The anterior and posterior shoulders delivered without complication followed by the rest of the and the infant was placed on the maternal abdomen. Delayed cord clamping was employed for approximately 60 seconds. Cord was clamped and cut and gentle traction was applied to the cord and the placenta delivered spontaneously immediately following it was noted to be intact with three-vessel cord. The perineum and vagina were inspected and noted to have a first degree perineal laceration which was repaired in the usual fashion with 3-0 vicryl rapide. . EBL was 200 cc. Patient and infant tolerated delivery well. Amniotic Fluid Description: Clear Placental Delivery Description: Spontaneous Placenta Disposition: [facility] Cord Vessel Description: 3 Vessels Cord Entanglement: None Delayed Cord Clamping: Yes Post Vaginal Delivery Medications Given After Delivery: IM Pitocin Episiotomy Description: None Laceration: Perineal Extension/lac and 1st degree Complication Complications: None Procedures Urinary/Genital [id number]: [id number] Vaginal Delivery [facility]
--- NOTE | 2022-09-28 21:31 | DCINST_ITS ---
Discharge Instructions Diet Discharge Diet: No restrictions Activity Discharge Activity: Return to Normal Activity, May Drive, May Shower and May Take a Tub Bath (in 4 weeks) May resume sexual activity in: 6-8 weeks (after seen by OB provider) Weight Bearing Status: Full weight bearing Lifting Restrictions: none Dressing / Incision Call your doctor if you observe: Fever of 101 or Higher, Inability to urinate, Using more than 1 pad per hour (for more than 2 hours in a row or more), Shortness of breath, Dizziness, Chest pain and - (headache not controlled with tylenol, change in vision) Follow Up Care When: in 6 weeks for visit, call the office to make the appointment. If you had elevated blood pressures call the office to be seen within 1 week. Test Results: Test results from this visit will be discussed in further detail at your follow- up appointment, if applicable. Discharge Plan Admission Admit Date/Time: 09/27/22 19:23 Attending Provider: Rosa Joyce Primary Care Provider: Mike Gasca Discharge Orders/Prescriptions Prescriptions: No Action DHA 200 mg capsule 200 mg PO DAILY prochlorperazine maleate [Compazine] 10 mg tablet 10 mg PO Q8H PRN (Reason: nausea and vomiting) Qty: 60 2RF hydroxyzine pamoate [Vistaril] 50 mg capsule 50 mg PO QHS Referrals / Follow Up: Mike Gasca MD [Primary Care Provider] - Disposition Disposition (needs filled in before D/C Order can be placed): Home, Self Care
[2022-09-28] MEDS: Acetaminophen 500 MG Tablet 1000 MG PO (22:11)
--- NOTE | 2022-09-29 00:22 | NURSING ---
epidural catheter removed by this RN. Blue tip intact
[2022-09-29] MEDS: 0.9% Saline Lock 10 ML Syringe IV (00:26)
[2022-09-29 04:40] VITALS: BP 104/55; PULSE 67; RESP 16; TEMP 36.8
[2022-09-29] MEDS: Naproxen 500 MG Tablet PO ×2 (07:15→17:06)
--- NOTE | 2022-09-29 08:17 | PN.OBGYN_ITS ---
Subjective Subjective Patient doing well without complaints. Tolerating PO. Ambulating and voiding without difficulty. Feeding well. Denies chest pain, shortness of breath, calf pain/swelling, fevers, chills, lightheadedness. Objective Data Objective Data Vital Signs: Vital Signs Temp Pulse Resp BP Pulse Ox O2 Del Method 98.2 F 67 16 104/55 L 98 Room Air 09/29/22 04:40 09/29/22 04:40 09/29/22 04:40 09/29/22 04:40 09/28/22 23:11 09/29/22 04:40 Oxygen Delivery Method Room Air Weight: 167 lb 8.821 oz Body Mass Index (BMI) 27.8 Intake & Output: Intake and Output for Last 24 Hours 09/27/22 09/28/22 09/29/22 23:59 23:59 23:59 Intake Total 687.5 / 687.5 6028.55 / 6028.55 250 / 250 Output Total 2350 / 2350 1600 / 1600 Balance 687.5 / 687.5 3678.55 / 3678.55 -1350 / -1350 Lab / Micro Data Attestation: I reviewed the patient's lab results. Result Diagrams: 09/27/22 19:55 ROS Constitutional Constitutional: Reports systems reviewed and no addt'l complaints, except as documented; Denies anorexia or headache(s) Cardiovascular Cardiovascular: Reports systems reviewed and no addt'l complaints, except as documented; Denies dizziness, dyspnea, nausea or tachypnea Respiratory/Chest Respiratory/Chest: Reports systems reviewed and no addt'l complaints, except as documented; Denies cough, dyspnea, shortness of breath at rest or tachypnea Gastrointestinal Gastrointestinal: Reports systems reviewed and no addt'l complaints, except as documented; Denies abdominal pain, constipation or nausea Genitourinary Genitourinary: Reports systems reviewed and no addt'l complaints, except as documented; Denies burning urination, difficulty urinating, dysuria, urinary frequency or urinary incontinence Musculoskeletal Musculoskeletal: Reports systems reviewed and no addt'l complaints, except as documented Integumentary Integumentary: Reports systems reviewed and no addt'l complaints, except as documented Neurologic Neurologic: Reports systems reviewed and no addt'l complaints, except as d ocumented; Denies abnormal speech, dizziness or headache(s) Psychiatric Psychiatric: Reports systems reviewed and no addt'l complaints, except as docum ented Endocrine Endocrinology: Reports systems reviewed and no addt'l complaints, except as documented Hematologic/Lymphatic Hematologic/Lymphatic: Reports systems reviewed and no addt'l complaints, except as documented Physical Exam Const alert, oriented x3 and no apparent distress Neck full ROM Resp normal respiratory effort, normal air movement and no retractions Effort and Inspection: able to speak in complete sentences and symmetric chest movement GI soft to palpation Bladder / Kidney Exam: bladder normal to palpation Uterus Palpation: uterus fundus firm (U1) Extremity normal to inspection and full ROM Psych mental status grossly normal, thought process normal and cooperative Assessment & Plan (1) Vaginal delivery: COMMENT: JAME/MARIA ALEJANDRA 39 IOL IVF boy [place] PLAN: s/p PPD # 1 1. routine post delivery care 2. breast feeding- support given 3. rh positive 4. rubella immune Charges/Coding Multi Select Codes Urinary/Genital Urinary/Genital CPT Codes: No Charge
[2022-09-29 09:15] VITALS: BP 117/66; PULSE 80; TEMP 36.7
[2022-09-29] MEDS: Acetaminophen 500 MG Tablet 1000 MG PO ×2 (09:35→19:54)
[2022-09-29] MEDS: Prenatal Vits Tablet 1 TABLET PO (09:35)
[2022-09-29 12:01] VITALS: BP 107/68; PULSE 78; RESP 16; TEMP 36.7; O2SAT 97
[2022-09-29 17:10] VITALS: BP 117/61; PULSE 78; RESP 16; TEMP 36.7; O2SAT 97
[2022-09-29 19:43] VITALS: BP 116/69; PULSE 75; RESP 18; TEMP 36.4; O2SAT 96
[2022-09-30 02:50] VITALS: BP 117/68; PULSE 70; RESP 16; TEMP 36.6; O2SAT 97
[2022-09-30] MEDS: Naproxen 500 MG Tablet PO (05:39)
--- NOTE | 2022-09-30 08:23 | PCM.DC.SUM ---
Providers Date of Admission: 09/27/22 Date of Discharge: 09/30/22 Primary Care Physician: Dr. Mike Gasca MD Reason For Visit: VAGINAL DELIVERY Diagnosis Discharge Diagnosis (1) Vaginal delivery: Status: Inactive Code(s): O80 - Encounter for full-term uncomplicated delivery Plan: s/p PPD # 2 1. routine post delivery care 2. breast feeding- support given 3. rh positive 4. rubella immune 5. d/c home today Medications at Discharge Home Medications docosahexaenoic acid 200 mg capsule ( DHA) 200 mg PO DAILY 03/07/22 prochlorperazine maleate 10 mg tablet (Compazine) 10 mg PO Q8H PRN nausea and vomiting #60 tabs 05/03/22 hydroxyzine pamoate 50 mg capsule (Vistaril) 50 mg PO QHS sleep 09/26/22 Hospital Course Operations None Summary of Care Provided Hospital Course: pt is s/p IOL for IVF which resulted in a without complications. normal course. Physical Exam Const alert, oriented x3 and no apparent distress Neck full ROM Chest inspection of chest normal Resp normal respiratory effort, normal air movement and no retractions Cardio regular rate and regular rhythm GI GI Narrative: fundus firm 1 below u, scant lochia Back/Spine normal ROM Extremity normal to inspection and full ROM Skin no rashes or lesions noted Weight / BMI Weight Weight: 167 lb 8.821 oz Body Mass Index (BMI) 27.8 ABG / Lab / Microbiology Data Result Diagrams: 09/27/22 19:55 D/C Instructions Discharge Diet: No restrictions May resume sexual activity in: 6-8 weeks (after seen by OB provider) Weight Bearing Status: Full weight bearing Call your doctor if you observe: Fever of 101 or Higher, Inability to urinate, Using more than 1 pad per hour (for more than 2 hours in a row or more), Shortness of breath, Dizziness, Chest pain and - (headache not controlled with tylenol, change in vision) When: in 6 weeks for visit, call the office to make the appointment. If you had elevated blood pressures call the office to be seen within 1 week. Meaningful Use Info Meaningful Use Diagnoses (Choose all that apply): None applicable Discharge Plan Admission Admit Date/Time: 09/27/22 19:23 Attending Provider: Rosa Joyce Primary Care Provider: Mike Gasca Discharge Orders/Prescriptions Prescriptions: No Action DHA 200 mg capsule 200 mg PO DAILY prochlorperazine maleate [Compazine] 10 mg tablet 10 mg PO Q8H PRN (Reason: nausea and vomiting) Qty: 60 2RF hydroxyzine pamoate [Vistaril] 50 mg capsule 50 mg PO QHS Referrals / Follow Up: Mike Gasca MD [Primary Care Provider] - Disposition Disposition (needs filled in before D/C Order can be placed): Home, Self Care
--- NOTE | 2022-09-30 08:29 | PCM.PN.OB ---
Subjective Subjective Patient doing well without complaints. Tolerating PO. Ambulating and voiding without difficulty. Feeding well. Denies chest pain, shortness of breath, calf pain/swelling, fevers, chills, lightheadedness. Objective Data Objective Data Vital Signs: Vital Signs Temp Pulse Resp BP Pulse Ox O2 Del Method 97.9 F 70 16 117/68 97 Room Air 09/30/22 02:50 09/30/22 02:50 09/30/22 02:50 09/30/22 02:50 09/30/22 02:50 09/30/22 02:50 Oxygen Delivery Method Room Air Weight: 167 lb 8.821 oz Body Mass Index (BMI) 27.8 Intake & Output: Intake and Output for Last 24 Hours 09/28/22 09/29/22 09/30/22 23:59 23:59 23:59 Intake Total 6028.55 / 6028.55 250 / 250 Output Total 2350 / 2350 1600 / 1600 Balance 3678.55 / 3678.55 -1350 / -1350 Lab / Micro Data Attestation: I reviewed the patient's lab results. Result Diagrams: 09/27/22 19:55 Physical Exam Const alert, oriented x3 and no apparent distress Neck full ROM Chest inspection of chest normal Resp normal respiratory effort, normal air movement and no retractions Cardio regular rate and regular rhythm GI GI Narrative: fundus firm 1 below u, scant lochia Back/Spine normal ROM Extremity normal to inspection and full ROM Skin no rashes or lesions noted Assessment & Plan (1) Vaginal delivery: COMMENT: SM/KW 39 IOL IVF boy [place] PLAN: s/p PPD # 2 1. routine post delivery care 2. breast feeding- support given 3. rh positive 4. rubella immune 5. d/c home today
[2022-09-30 09:21] VITALS: BP 120/75; PULSE 90; RESP 16; TEMP 36.4
[2022-09-30 09:23] VITALS: PULSE 90; RESP 16
[2022-09-30] MEDS: Prenatal Vits Tablet 1 TABLET PO (09:29)
== END 2022-09-30 11:04 | disposition home or self-care (01) | DRG 807 ==
PROVIDERS: Obstetrics & Gynecology; Admitting Provider Obstetrics & Gynecology; Visit Provider Obstetrics & Gynecology
DX: O70.0 First degree perineal laceration during delivery (principal); Z37.0 Single live birth; B95.4 Other streptococcus as the cause of diseases classified elsewhere; Z3A.39 39 weeks gestation of pregnancy
CPT/HCPCS: 59025; 59050; 85025; 86780; 86850; 86900; 86901; 99221; J7120; A4216; G0378; J2405

== ENCOUNTER → 2024-01-17 | Outpatient (CLI) | payer BC, SELFPAY ==
[2024-01-17 08:52] LABS: Prolactin 52.7 ng/mL
== END | disposition home or self-care (01) ==
LOC: LAB 07:43
PROVIDERS: Referring Provider Nurse Practitioner Women's Health; Visit Provider Nurse Practitioner Women's Health
DX: N64.3 Galactorrhea not associated with childbirth (principal)
CPT/HCPCS: 36415; 84146

== ENCOUNTER → 2024-01-30 | Outpatient (CLI) | payer BC, SELFPAY ==
--- NOTE | 2024-01-30 13:10 | MRI_ITS ---
STUDY: MRI BRAIN WITH AND WITHOUT CONTRAST (ATTENTION PITUITARY GLAND) REASON FOR EXAM: Female, 33 years old. galactorrhea, please compare to previous pituitary MRI TECHNIQUE: Standardized multiplanar fat and water weighted pulse sequences were obtained. IV 12ml Clariscan was administered for the contrast portion of the examination. COMPARISON: MRI of the brain dated January 31, 2023 FINDINGS: Normal size of the pituitary gland for the patient?s age and gender. A 9.7 x 7.3 mm nonenhancing nodule is present in the central aspect of the anterior lobe of the pituitary gland compatible with a benign pituitary adenoma. Normal infundibular stalk and suprasellar cistern. Normal optic chiasm and hypothalamus. Normal size of the ventricles and extra-axial spaces for the patient''s age. Normal white matter tracts of the supratentorial brain. There are no demyelinating plagues of the supratentorial brain, brainstem or cerebellum. There are no findings suspicious for multiple sclerosis (MS). There is no evidence for recent intracranial ischemia or other cause of cytotoxic edema on diffusion weighted imaging (DWI). Normal T2* images of the brain without demonstrated susceptibility artifact. There is no demonstrated hemosiderin stain. Normal bilateral basal ganglia. Normal thalami. Normal flow voids within the major intracranial circulation suggesting patency by spin echo criteria. Normal venous enhancement. There is no enhancing intra-axial or extra-axial abnormality. There is no extra-axial fluid accumulation. Normal tectal plate and pineal gland. Normal midbrain, froilan and medulla. Normal cerebellum. Normal basal cisterns. Normal bilateral temporal bones. Normal bilateral internal auditory canals. No demonstrated orbital abnormality, within the constraints of a routine brain study. Normal visualized paranasal sinuses. Normal calvarium and skull base. Normal visualized upper cervical spine. Normal visualized soft tissue structures. MRI/Brain W/WO Contrast IMPRESSION: 1. A 9.7 x 7.3 mm nonenhancing nodule is present in the central aspect of the anterior lobe of the pituitary gland compatible with a benign pituitary adenoma Electronically Signed: Cedric Muñoz MD at 15:21 EDT ,
== END | disposition home or self-care (01) ==
PROVIDERS: Referring Provider Nurse Practitioner Women's Health; Visit Provider Nurse Practitioner Women's Health
DX: N64.3 Galactorrhea not associated with childbirth (principal)
CPT/HCPCS: 70553; A9575

== ENCOUNTER → 2024-12-24 | Outpatient (CLI) | payer BC, SELFPAY ==
[2024-12-28 03:07] LABS: Chlamydia By Nucleic Acid AMP Negative (Negative); Gonococcus By Nucleic Acid AMP Negative (Negative)
[2024-12-28 08:08] LABS: HPV APTIMA, High Risk Negative (Negative)
== END | disposition home or self-care (01) ==
LOC: LABSPEC 09:56
PROVIDERS: Obstetrics & Gynecology; Referring Provider Obstetrics & Gynecology; Visit Provider Obstetrics & Gynecology
DX: O09.90 Supervision of high risk pregnancy, unspecified, unspecified trimester (principal); Z3A.00 Weeks of gestation of pregnancy not specified
CPT/HCPCS: 87077; 87086; 87088; 87491; 87591; 87624; 88175; G0145

== ENCOUNTER → 2025-01-07 | Outpatient (CLI) | payer BC, SELFPAY ==
[2025-01-07 12:13] LABS: Hematocrit 36.4 % (37-47); Hemoglobin 12.4 g/dL (12.0-15.0); Immature Granulocytes Count 0.040 X10^3/uL (0.0-0.0); Mean Corp Hgb Conc 34.1 g/dL (32-36); Mean Corpuscular Volume 88.8 fL (81-99); Mean Platelet Vol. 10.1 fl (6.2-12.0); NRBC Flagged by Analyzer 0 % (0-5); Platelet Count 208 K/mm3 (150-450); RBC Distribution Width CV 12.6 % (11.6-14.6); RBC Distribution Width SD 40.8 fl (35.1-43.9); Red Blood Count 4.10 M/mm3 (4.2-5.4); White Blood Count 9.7 K/mm3 (4.4-11.0)
[2025-01-07 13:28] LABS: HIV Nonreactive (Nonreactive); Hepatitis B Surface Antigen Nonreactive (Nonreactive); Hepatitis C Antibody Nonreactive (Nonreactive); Syphilis Antibodies Nonreactive (Nonreactive)
== END | disposition home or self-care (01) ==
PROVIDERS: Obstetrics & Gynecology; Visit Provider Advanced Practice Midwife
DX: Z34.81 Encounter for supervision of other normal pregnancy, first trimester (principal)
CPT/HCPCS: 36415; 85025; 86703; 86762; 86780; 86803; 86850; 86900; 86901; 87340

== ENCOUNTER → 2025-02-24 | Outpatient (CLI) | payer BC, SELFPAY ==
[2025-02-24 17:13] LABS: Hematocrit 33.1 % (37-47); Hemoglobin 11.4 g/dL (12.0-15.0); Immature Granulocytes Count 0.060 X10^3/uL (0.0-0.0); Mean Corp Hgb Conc 34.4 g/dL (32-36); Mean Corpuscular Volume 87.6 fL (81-99); Mean Platelet Vol. 10.0 fl (6.2-12.0); NRBC Flagged by Analyzer 0 % (0-5); Platelet Count 203 K/mm3 (150-450); RBC Distribution Width CV 12.8 % (11.6-14.6); RBC Distribution Width SD 40.7 fl (35.1-43.9); Red Blood Count 3.78 M/mm3 (4.2-5.4); White Blood Count 9.7 K/mm3 (4.4-11.0)
== END | disposition home or self-care (01) ==
LOC: BWCLAB 16:20
PROVIDERS: Referring Provider Advanced Practice Midwife; Visit Provider Advanced Practice Midwife
DX: O09.90 Supervision of high risk pregnancy, unspecified, unspecified trimester (principal); Z3A.00 Weeks of gestation of pregnancy not specified
CPT/HCPCS: 36415; 85025

== ENCOUNTER → 2025-05-13 | Outpatient (CLI) | payer BC, SELFPAY ==
[2025-05-13 12:41] LABS: Hematocrit 34.1 % (37-47); Hemoglobin 11.6 g/dL (12.0-15.0); Immature Granulocytes Count 0.040 X10^3/uL (0.0-0.0); Mean Corp Hgb Conc 34.0 g/dL (32-36); Mean Corpuscular Volume 91.4 fL (81-99); Mean Platelet Vol. 10.4 fl (6.2-12.0); NRBC Flagged by Analyzer 0 % (0-5); Platelet Count 190 K/mm3 (150-450); RBC Distribution Width CV 13.6 % (11.6-14.6); RBC Distribution Width SD 45.1 fl (35.1-43.9); Red Blood Count 3.73 M/mm3 (4.2-5.4); White Blood Count 10.0 K/mm3 (4.4-11.0)
[2025-05-13 13:25] LABS: Glucose Challenge Gest 1H 50g 77 mg/dL (70-140); HIV Nonreactive (Nonreactive); Syphilis Antibodies Nonreactive (Nonreactive)
== END | disposition home or self-care (01) ==
PROVIDERS: Obstetrics & Gynecology; Visit Provider Obstetrics & Gynecology
DX: O09.90 Supervision of high risk pregnancy, unspecified, unspecified trimester (principal); Z13.1 Encounter for screening for diabetes mellitus; Z3A.00 Weeks of gestation of pregnancy not specified
CPT/HCPCS: 36415; 82950; 85025; 86703; 86780